=== PATIENT | female | born 1955 | race Caucasian/White ===

== ENCOUNTER 2024-08-14 16:30 | Inpatient (IN) | payer OTHER, SELFPAY ==
[2024-08-14] VITALS (9 sets, daily range): BP systolic 92–133; BP diastolic 56–86; BMI 20.5
--- NOTE | 2024-08-14 12:49 | ED.GENMED ---
History of Present Illness
General
Chief Complaint: Musculo-Skeletal Complaint
Source: patient
Time Seen by Provider: 08/14/24 12:36
History of Present Illness
History of Present Illness:
68yoF with no significant past medical history presenting via EMS with her daughter for evaluation after a fall about 2 hours ago. She was walking down her outdoor steps when she tripped over a trash bag. She landed directly on her left hip. She
denies any head strike or loss of consciousness. Patient noticed that her left leg was rotated and she was unable to get off the ground. She was on the ground for approximately 30 minutes before EMS arrived. Her only current complaint is left hip
pain. She denies any other injuries. No paresthesias in the extremity.
Phy Exam
General Physical Exam
General Presentation: well appearing and no apparent distress
General age: appears stated age
General Skin: warm and dry
General Habitus: normal
General Mental: alert
ENT Exam
ENT Exam: normocephalic
Eye Exam
Eye Exam: PERRL
Cardiovascular Exam
Cardiovascular Exam: regular rate/rhythm and no murmur
Pulmonary Exam
Pulmonary Exam: lungs clear, no respiratory distress, no rales, no crackles and no rhonchi
Neurological Exam
Neurological Exam: alert
Nena Coma Scale
Eye Opening: Spontaneous
Verbal Response: Oriented
Motor Response: Obeys Commands
GCS Total Score: 15
Musculoskeletal Exam
Musculoskeletal Exam: other (L leg is externally rotated and shortened. Unable to range L hip. Sensation intact. DP pulse obtained with doppler)
Skin Exam
Skin Exam: normal color and warm/dry
Psychiatric Exam
Psychiatric Exam: normal mood/affect
Course
Orders/Labs/Results
Orders:
Orders
08/14/24 12:47
Oxycodone/Acetaminophen [Percocet 5/325] 1 tablet PO NOW STA
CR Femur - Left Min 2 Vw Urgent
Comment:
Reason For Exam: fall
Pelvis, 1 or 2 Views CR [CR Pelvis - 1 Or 2 Views ] Urgent
Comment:
Reason For Exam: L hip pain
08/14/24 14:15
Complete Blood Count/With Diff Urgent
Comprehensive Metabolic Panel Urgent
08/14/24 15:12
Type+Screen Urgent
08/14/24 15:19
ORTHOPEDIC CONSULT Urgent
Consulting Provider: Michael Landaverde
Was physician already notified: Yes
08/14/24 16:00
ABO2 Urgent
BBK Wristband Number:
Associate notified that ABO2 has been ordered: [id number]
Date: 08/14/24
Time: 15:37
[facility] Therapist ID: [id number]
08/14/24 16:02
Admit/Transfer Patient As Directed
Co-Sign Provider:
Level of Care: Inpatient admission
Assign to:: Medical/Surgical
Physician / Group: lillian
Diagnosis: left hip fracture
Reason for Hospitalization: left hip fracture
Expected length of stay greater than two midnights?: Yes
ELOS- Estimated Length of Stay in days: 2
I certify the patient meets the requirements for IP care: Yes
PRN Pain Medication Management As Directed
May give lesser potent ordered pain med per pt: Yes
preference::
Protocol:: Medication orders for pain may be administered in a
manner that supports deferring to patient preference
when the pt is:
- Requesting an ordered lesser potent pain medication.
Least to most potent pain medications are defined
as: acetaminophen < NSAID < tramadol < opioids
(morphine, oxycodone, hydromorphone).
- Requesting a lesser dose of the same medication IF
ORDERED.
- Requesting a less intrusive route of administration
if both routes are prescribed by the provider (PO <
IV).
08/14/24 16:03
Code Status As Directed
Resuscitation Status: Full Code
Abnormal Lab Results
08/14/24
14:15
WBC 15.9 H 10^3/uL
(4.8-10.8)
RBC 3.71 L 10^6/uL
(4.20-5.40)
Hgb 11.8 L g/dL
(12.0-16.0)
Hct 35.0 L %
(37.0-47.0)
MCH 31.8 H pg
(27.0-31.0)
Abs Immat Gran (auto) 0.1 H 10^3/uL
(0-0.05)
Absolute Neuts (auto) 14.0 H 10^3/uL
(1.4-6.5)
Absolute Lymphs (auto) 1.0 L 10^3/uL
(1.2-3.4)
Neutrophils % 88.2 H %
(42.2-75.2)
Lymphocytes % 6.5 L %
(20.5-51.1)
BUN 18 H mg/dl
(7-17)
Glucose 105 H mg/dl
(70-99)
08/14/24 14:15
08/14/24 14:15
Vital Signs
Initial and Last Documented VS:
Initial Vital Signs
Temp Pulse Resp BP Pulse Ox
97.5 F 66 14 130/86 98
08/14/24 12:08/14/24 12:06 08/14/24 12:08/14/24 12:08/14/24 12:06
Last Documented Vital Signs
Temp Pulse Resp BP Pulse Ox
97.5 F 68 14 102/56 100
08/14/24 12:06 08/14/24 12:06 08/14/24 12:06 08/14/24 15:17 08/14/24 15:30
MDM/Problems Addressed
Differential Diagnosis Includes:
68yoF here with L hip pain after a mechanical fall. L leg is shortened and externally rotated on exam. LLE is neurovascularly intact. No other injuries appreciated on exam. Differential diagnosis includes but is not limited to: fracture, dislocation
Initial ED plan: Check basic labs and pelvis/L femur x-rays. Percocet for pain.
*Critical Care Note
Total Time (30-74mins, 75-104mins- exclusive of procedures): Not Applicable
Update Note
Update Note:
X-rays show a comminuted intertrochanteric fracture. Orthopedics notified and plan is for OR tomorrow. Patient admitted to the internal medicine service for further management.
ED Attending Note
-
Portions of this chart may have been created with voice recognition software.� Occasional wrong word or��sound alike� substitutions may have occurred due to the inherent limitations of voice recognition software.
Discharge Plan
Departure
Patient Disposition: Admit
Date of Disposition: 08/14/24
Time of Disposition: 15:20
Presentation/result/management discussed w/ accepting MD/DO: Hospitalist
Discharge Problem:
Closed fracture of left hip
Prescriptions:
No Action
calcium carbonate [Calcium 600] 600 mg calcium (1,500 mg) Tablet
600 mg PO DAILY
PreserVision AREDS-2 250-90-40-1 mg Capsule
1 tab PO DAILY
Referrals:
Bryan Hernandez MD [Family Provider] -
Interventions
Interventions:
*Risk Screen - Suicide Last Done: 08/14/24 12:06
*General Assessment Last Done: 08/14/24 12:06
*Neglect/Abuse Screening Last Done: 08/14/24 12:06
ED- Fall Risk Assessment Last Done: 08/14/24 12:06
*ED COVID-19 Vaccine History Last Done: 08/14/24 12:06
ED-Musculoskeletal Assessment Last Done: 08/14/24 12:23
Discharge Date and Time
Print Language: FAROESE
[2024-08-14] MEDS: PERCOCET 5/325 1 TABLET PO (13:03)
[2024-08-14 14:44] LABS: % Basophils 0.4 % (0-2); % Eosinophils 0.5 % (0-6); % Immature Granulocytes 0.4 % (0-0.5); % Lymphocytes 6.5 % (20.5-51.1); % Neutrophils 88.2 % (42.2-75.2); Absolute Basophils 0.1 10^3/uL (0-0.2); Absolute Eosinophils 0.1 10^3/uL (0-0.7); Absolute Immature Granulocytes 0.1 10^3/uL (0-0.05); Absolute Monocytes 0.6 10^3/uL (0.1-0.6); Hemoglobin 11.8 g/dL (12.0-16.0); Mean Corp Hgb Conc. 33.7 g/dL (33.0-37.0); Mean Corpuscular Hgb 31.8 pg (27.0-31.0); Mean Corpuscular Volume 94.3 fL (81.0-99.0); Mean Platelet Volume 10.3 fL (7.4-10.4); Nucleated Red Blood Cells % 0 %; Platelet Count 242 10^3/uL (130-400); Red Blood Cell Count 3.71 10^6/uL (4.20-5.40); Red Cell Dist. Width 13.2 % (11.5-14.5); White Blood Cell Count 15.9 10^3/uL (4.8-10.8)
[2024-08-14 14:51] LABS: ALT (SGPT) 21 U/L (0-35); AST (SGOT) 30 U/L (14-36); Albumin 4.1 g/dl (3.5-5.0); Alkaline Phosphatase 67 U/L (38-126); Blood Urea Nitrogen 18 mg/dl (7-17); Calcium 9.4 mg/dl (8.4-10.2); Carbon Dioxide 26 mmol/L (22-30); Chloride 103 mmol/L (98-107); Estimated Creatinine Clearance 66 ml/min; Glucose 105 mg/dl (70-99); Potassium 3.8 mmol/L (3.5-5.1); Sodium 139 mmol/L (135-145); Total Bilirubin 1.3 mg/dl (0.2-1.3); Total Protein 6.4 g/dl (6.3-8.2); eGFR > 60.00
--- NOTE | 2024-08-14 15:49 | PHANOTE ---
med ec note- patient applies a cream to fore head. patient can not remember at this what it is called. micki specialty cream.
--- NOTE | 2024-08-14 16:06 | HPS.HSE ---
Family Physician
-
Family Physician: Bryan Hernandez
Chief Complaint
-
fall, hip fracture
History of Present Illness
68-year-old female past medical history of morphea presenting with fall 2 hours ago. She was walking outdoors she tripped over a trash bag and landed directly on her left hip. She denies head injury or loss of consciousness. She noticed that her
left leg was rotated and she was unable to get off the ground. He was on the ground for 30 minutes. Her only complaint is left hip pain. She denies any numbness or tingling.
She drinks 1 glass of wine every night. Denies smoking.
No history of cardiac problems.
Medical History
Past Medical History
Past Medical History: Reports Other (morphea )
Past Surgical History: Reports Other (breast augmentation )
Social History
Tobacco: Non-smoker
Alcohol: None
Drug: None
Family History
Family History: Not pertinent
Allergies / Home Medications
Allergies reflects when Allergies were last updated in [facility].
Home Medications with original date entered in [employer]
Allergy/Medication List:
Allergies
Allergy/AdvReac Type Severity Reaction Status Date / Time
No Known Allergies Allergy Verified 08/14/24 12:06
Home Medications
calcium carbonate (Calcium 600) 600 mg PO DAILY 08/14/24
vit C 250 mg-vit E 90 mg-zinc 40 mg-copper 1 [id number] capsule (PreserVision AREDS-2) 1 tab PO DAILY 08/14/24
Review of Systems
-
History Source: Patient
A 12 point ROS was completed and negative except as noted: Yes
Constitutional: Reports No Symptoms
EENT: Reports No Symptoms
Respiratory: Reports No Symptoms
Cardiac: Reports No Symptoms
Abdomen/GI: Reports No Symptoms
: Reports No Symptoms
Musculoskeletal: Reports No Symptoms
Skin: Reports No Symptoms
Neurological: Reports No Symptoms
Endocrine: Reports No Symptoms
Hematologic/Lymphatic: Reports No Symptoms
Psych: Reports No Symptoms
Physical Exam
Vital Signs
Vital Signs
Temp Pulse Resp BP Pulse Ox
97.5 F 68 14 102/56 100
08/14/24 12:06 08/14/24 12:06 08/14/24 12:06 08/14/24 15:17 08/14/24 15:30
Physical Exam
General: Well Developed, Well Nourished and No Apparent Distress
HEENT: NormoCephalic, Moist mucous membranes and Atraumatic
Respiratory: Clear
Cardiac: S1/S2 and Regular Rhythm; No Murmur or Rub
GI: Soft, Non Tender, Non Distended and Normal Bowel Sounds; No Organomegaly
Rectal: Deferred by Provider
Musculoskeletal: No Clubbing, No Cyanosis and No Edema
Skin: No Rash
Neuro: Nonfocal/grossly intact
Laboratory Results
-
08/14/24 14:15
08/14/24 14:15
Laboratory Results
Total Bilirubin 1.3 mg/dl (0.2-1.3) 08/14/24 14:15
AST 30 U/L (14-36) 08/14/24 14:15
ALT 21 U/L (0-35) 08/14/24 14:15
Alkaline Phosphatase 67 U/L (38-126) 08/14/24 14:15
Data Reviewed
-
Lab Data: Labs Reviewed by me
Old Records: Reviewed
Impression/Plan
-
IMPRESSION:
PLAN:
# Left hip fracture
-Tylenol, oxycodone for pain as needed
-Ortho consulted
-N.p.o. past midnight
-No cardiac history
-Very good functional status at baseline, can proceed to surgery,
History of morphea
Full code
DVT prophylaxis�SCDs
N.p.o. past midnight
[2024-08-14] MEDS: TYLENOL 650 MG PO (20:13)
[2024-08-15] VITALS (11 sets, daily range): BP systolic 100–136; BP diastolic 58–78
--- NOTE | 2024-08-15 05:40 | CON.ORTHO ---
Consultation
-
Date/Time Consultation Requested: 08/14/2024 @ 15:19
Date/Time Consultation Performed: 08/15/2024 @ 5:30
Requesting Provider: Joanne Mary PA-C
Performing Provider: Kenny Stockton PA-C for Dr. Michael Landaverde
Reason for Consultation: Left Hip Fracture
Consultation - Orthopedics
History
HPI: The patient is a 68-year-old female with a past medical history of Morphea presenting to [facility] via EMS yesterday after sustaining a mechanical fall. She reports that she was walking outdoors when she tripped
and landed directly on her left hip. She reports immediate onset of left hip pain. She noticed that her left leg was rotated and she was unable to get off the ground. She was transferred to the ED where x-rays revealed a left hip fracture. She
denies any head injury or loss of consciousness. At this time, she reports her left hip pain is controlled at rest. She does endorse a radiating pain into her left knee. She lives with her daughter. She is fully ambulatory at baseline without
assistance. She denies any cardiac history or anticoagulation use. She denies any paresthesias. Orthopedics has been consulted for further management.
PAST MEDICAL HISTORY: Morphea.
PAST SURGICAL HISTORY: Breast augmentation.
SOCIAL HISTORY: Denies tobacco use. Drinks 1 glass of wine at night. Denies any illicit drug use. Lives at home with her daughter. She is fully ambulatory without assistance at baseline. 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
home.
FAMILY HISTORY: Non-contributory.
REVIEW OF SYSTEMS: 12-point review of systems obtained and negative except those mentioned in the HPI.
Allergies / Home Medications
Allergy/AdvReac Type Severity Reaction Status Date / Time
No Known Allergies Allergy Verified 08/14/24 12:06
�Medication �Instructions �Recorded
calcium carbonate (Calcium 600) 600 mg PO DAILY 08/14/24
vit C 250 mg-vit E 90 mg-zinc 40 1 tab PO DAILY 08/14/24
mg-copper 1 [id number]
capsule (PreserVision AREDS-2)
Vital Signs / Lab Results
Temp Pulse Resp BP Pulse Ox
98.5 F 80 18 92/56 99
08/14/24 23:24 08/14/24 23:24 08/14/24 23:24 08/14/24 23:24 08/14/24 23:24
RADIOGRAPHIC FINDINGS:
CR Femur - LEFT Min 2 Vw; CR Pelvis 1 or 2 Viewswas obtained at [facility] on 08/14/2024 and was made available for my review today. Findings and Impression: Comminuted fracture is seen in the intertrochanteric region, with impaction of
major fracture fragment. No dislocation of the left hip joint. No additional fractures are appreciated.
PHYSICAL EXAM:
General: Well-developed, well-nourished and in no apparent distress.
HEENT: NCAT, sclerae anicteric, normal hearing.
Heart: No JVD.
Lungs: Normal work of breathing on room air.
MSK: Directed exam of the left lower extremity reveals leg shortened and externally rotated. (+) TTP about the left hip/lateral thigh. Able to perform flexion and extension of the left knee with no significant reproducible tenderness to palpation
about the left knee. Compartments are soft and compressible. (+) Logroll. Calf is soft and nontender to palpation. Able to dorsiflex and plantarflex left ankle. NVI distally.
Assessment / Plan
ASSESSMENT: 68-year-old female with a LEFT comminuted hip fracture in the intertrochanteric region, with impaction of major fracture fragment.
PLAN: Unfortunately, the patient has sustained a left hip fracture. Recommended operative fixation. The risks, benefits, potential complications, and expected post-operative course were reviewed. The patient has been medically cleared to proceed
with surgery. We will plan for LEFT hip gamma nail under the direction of Dr. Landaverde today, 08/15/2024. Surgical blood consents obtained and placed on patient's chart. Ancef on-call to OR. Patient will remain NPO. Remain NWB to LLE until
post-op. She is to remain on bedrest for now. Continue with pain medications as needed. Type and screen completed. Left hip marked as the correct surgical extremity. She was complaining of some left knee pain this morning, therefore will obtain
dedicated plain radiographs of the left knee. Hemoglobin 11.8 from 08/14/2024. Hemoglobin this AM pending. Orthopedic surgery will continue to follow.
[2024-08-15] MEDS: TYLENOL 650 MG PO (08:09)
[2024-08-15] MEDS: OCUVITE SOFTGEL 1 CAP PO (08:09)
[2024-08-15] MEDS: OSCAL CAL 500 500 MG PO (08:09)
[2024-08-15 08:38] LABS: % Basophils 0.5 % (0-2); % Eosinophils 0.8 % (0-6); % Immature Granulocytes 0.3 % (0-0.5); % Lymphocytes 11.9 % (20.5-51.1); % Neutrophils 77.5 % (42.2-75.2); Absolute Basophils 0.1 10^3/uL (0-0.2); Absolute Eosinophils 0.1 10^3/uL (0-0.7); Absolute Lymphocytes 1.2 10^3/uL (1.2-3.4); Absolute Monocytes 0.9 10^3/uL (0.1-0.6); Absolute Neutrophils 7.9 10^3/uL (1.4-6.5); Hematocrit 34.3 % (37.0-47.0); Hemoglobin 11.6 g/dL (12.0-16.0); Mean Corp Hgb Conc. 33.8 g/dL (33.0-37.0); Mean Corpuscular Hgb 31.7 pg (27.0-31.0); Mean Corpuscular Volume 93.7 fL (81.0-99.0); Mean Platelet Volume 10.5 fL (7.4-10.4); Nucleated Red Blood Cells % 0 %; Platelet Count 233 10^3/uL (130-400); Red Blood Cell Count 3.66 10^6/uL (4.20-5.40); Red Cell Dist. Width 13.3 % (11.5-14.5); White Blood Cell Count 10.1 10^3/uL (4.8-10.8)
[2024-08-15 08:39] LABS: ALT (SGPT) 21 U/L (0-35); AST (SGOT) 32 U/L (14-36); Albumin 3.9 g/dl (3.5-5.0); Alkaline Phosphatase 59 U/L (38-126); Blood Urea Nitrogen 11 mg/dl (7-17); Carbon Dioxide 27 mmol/L (22-30); Chloride 105 mmol/L (98-107); Estimated Creatinine Clearance 77 ml/min; Glucose 101 mg/dl (70-99); Potassium 4.3 mmol/L (3.5-5.1); Sodium 139 mmol/L (135-145); Total Bilirubin 2.3 mg/dl (0.2-1.3); Total Protein 6.4 g/dl (6.3-8.2); eGFR > 60.00
--- NOTE | 2024-08-15 12:29 | W.PN.HOSP.TC ---
Today's Communication/Plan
-
OR today
Pain control
Postop orders per orthopedic
Check EKG
Assessment / Plan
Assessment / Plan
# Mechanical fall leading to left hip fracture with suspected history of osteopenia
-Tylenol, oxycodone for pain as needed
-Ortho consulted
-No cardiac history. No pulmonary history. No renal disease. No diabetes. Patient is able to walk more than 2 miles without any difficulty. Patient is able to go up multiple flights of stairs without any chest pain or palpitations. Patient at
baseline is ambulatory without any difficulty.
- Bowel regimen
- Post op DVT ppx per ortho.
-Check baseline EKG. None checked on admission
-Trend hemoglobin postop
Leukocytosis likely reactive
Resolved
Mild bump in bilirubin
Continue to trend CMP
History of morphea
Full code
DVT prophylaxis�SCDs
Anticipated Discharge: > 48 hours
Subjective/Interval History
-
Date of Service: August 15, 2024
states of some hip soreness
Objective Data
-
Labs:
Laboratory Results
08/15/24
06:34
WBC 10.1
Hgb 11.6 L
Hct 34.3 L
Plt Count 233
Sodium 139
Potassium 4.3
Chloride 105
Carbon Dioxide 27
BUN 11
Creatinine 0.6
Glucose 101 H
Calcium 9.0
Total Bilirubin 2.3 H D
AST 32
ALT 21
Alkaline Phosphatase 59
Vital Signs:
Vital Signs
Temp Pulse Resp BP Pulse Ox
99 F 76 19 114/74 100
08/15/24 07:00 08/15/24 07:00 08/15/24 07:00 08/15/24 07:00 08/15/24 07:00
I&O
08/14/24 08/15/24 08/16/24
06:59 06:59 06:59
Intake Total 240 / 240
Output Total 600 / 600
Balance -360 / -360
Physical Exam
-
General: Well Developed and No Apparent Distress
HEENT: Normocephalic, Atraumatic and Moist Mucous Membranes
Respiratory: Clear to Auscultation
Cardiac: Regular Rhythm and S1/S2; Negative Murmur, Rub or Gallop
GI: Soft, Nontender, Nondistended and Normal Bowel Sounds; Negative Organomegaly
Rectal: Deferred by Provider
Musculoskeletal: No Clubbing, No Cyanosis, No Edema and Other (leg shortened and externally rotated.)
Skin: Negative Rash
Neuro: Awake, AO x 3, No Motor Deficits and Nonfocal/Grossly Intact
Psych: Calm
Data Reviewed
-
Total Time Spent with Patient (in minutes): 52
--- NOTE | 2024-08-15 13:13 | CM ---
Patient seen bedside.
IA completed.
Patient lives with daughter in a 2 story home with 2 steps to enter.
Independent prior to admission with no hx VN or SNF
Patient drives.
Dx rx hip, OR today.
Await PT/OT recommendations.
PCP: Dr Hernandez
Pharmacy: [facility] in [place]
Plan: to be determined.
--- NOTE | 2024-08-15 13:54 | PTCARENOTE ---
Pt taken to OR by transport staff. Verbal report given to CESILIA Sanchez. Pt attempted to void using pure wick before leaving but was unable.
--- NOTE | 2024-08-15 17:26 | PTCARENOTE ---
Patient admitted from [facility] with gamma nail left hip fracture.The patient fell at home and was admitted from the emergency room.The patient denies any pain.She is able to wiggle her toes but unable to feel anything else yet.Vital signs
are stable. Their is scant drainage on 2 of the 3 Primaseal dressings and all are intact.The patient is in her bed with the call day in reach.
[2024-08-15] MEDS: ASPIRIN 325 MG PO (17:39)
[2024-08-15] MEDS: CELEBREX 200 MG PO (19:53)
[2024-08-15] MEDS: COLACE 100 MG PO (19:53)
[2024-08-15] MEDS: ANCEF 5 IV (21:32)
[2024-08-16 03:08] VITALS: BP 100/66
[2024-08-16] MEDS: ANCEF 5 IV (05:39)
[2024-08-16 05:56] LABS: % Basophils 0.2 % (0-2); % Immature Granulocytes 0.6 % (0-0.5); % Lymphocytes 6.1 % (20.5-51.1); % Monocytes 9.4 % (1.7-9.3); % Neutrophils 83.7 % (42.2-75.2); Absolute Immature Granulocytes 0.1 10^3/uL (0-0.05); Absolute Lymphocytes 0.8 10^3/uL (1.2-3.4); Absolute Monocytes 1.2 10^3/uL (0.1-0.6); Hematocrit 31.3 % (37.0-47.0); Hemoglobin 10.6 g/dL (12.0-16.0); Mean Corp Hgb Conc. 33.9 g/dL (33.0-37.0); Mean Corpuscular Hgb 31.4 pg (27.0-31.0); Mean Corpuscular Volume 92.6 fL (81.0-99.0); Mean Platelet Volume 10.8 fL (7.4-10.4); Nucleated Red Blood Cells % 0 %; Platelet Count 231 10^3/uL (130-400); Red Blood Cell Count 3.38 10^6/uL (4.20-5.40); Red Cell Dist. Width 13.3 % (11.5-14.5); White Blood Cell Count 13.2 10^3/uL (4.8-10.8)
[2024-08-16 06:38] LABS: ALT (SGPT) 17 U/L (0-35); AST (SGOT) 28 U/L (14-36); Albumin 3.5 g/dl (3.5-5.0); Alkaline Phosphatase 52 U/L (38-126); Blood Urea Nitrogen 14 mg/dl (7-17); Calcium 8.7 mg/dl (8.4-10.2); Carbon Dioxide 24 mmol/L (22-30); Chloride 104 mmol/L (98-107); Estimated Creatinine Clearance 77 ml/min; Glucose 105 mg/dl (70-99); Potassium 4.4 mmol/L (3.5-5.1); Sodium 140 mmol/L (135-145); Total Bilirubin 1.8 mg/dl (0.2-1.3); Total Protein 5.9 g/dl (6.3-8.2); eGFR > 60.00
[2024-08-16 06:52] VITALS: BP 122/63
--- NOTE | 2024-08-16 07:15 | W.PN.ORTHO ---
Today's Communication / Plan
-
68 yo F POD1 left hip cephalomedullary nail under the direction of Dr. Deleon
--WBAT with assistive device to LLE. We appreciate the assistance of PT/OT.
--Recommend ASA 325 mg daily x4 weeks for DVT ppx.
--Hgb 10.6 today. Continue to monitor.
--Continue pain control prn. Ice and elevation prn for edema control.
--Maintain surgical dressing until 7-10 days post-op. Staple removal at 2 weeks post-op.
--Case management consult for dc planning.
--Orthopedics will continue to follow along.
Assessment
.
Distal Motor Intact: Yes
Dressing:
Clean, dry and intact.
Plan
.
Surgery / Date: Left hip CMN, [facility], 08/15/2024
DVT Prophylaxis: Aspirin
Activity:
Out of bed.
PT/OT
Subjective
.
.:
Ms. Gates is POD1 following her left hip CMN under the direction of Dr. Deleon. She is resting comfortably in bed this morning. She endorses mild pain when walking on the hip, but denies pain at rest.
Vital Signs and Labs
.
Vital Signs and Labs:
Lab Results
08/16/24 04:39
08/16/24 04:39
Temp Pulse Resp BP Pulse Ox
97.7 F 66 18 122/63 98
08/16/24 06:52 08/16/24 06:52 08/16/24 06:52 08/16/24 06:52 08/16/24 06:52
Physical Exam
-
Directed exam of the left lower extremity reveals surgical dressings clean, dry and intact. Mild tenderness to palpation about the lateral hip. Thigh soft and compressible. Calf soft and nontender. Patient able to wiggle toes, plantar and dorsiflex
ankle. Neurovascularly intact distally.
[2024-08-16] MEDS: PEPCID 20 MG PO (08:24)
[2024-08-16] MEDS: ASPIRIN 325 MG PO (08:24)
[2024-08-16] MEDS: COLACE 100 MG PO (08:24)
[2024-08-16] MEDS: OSCAL CAL 500 500 MG PO (08:24)
[2024-08-16] MEDS: OCUVITE SOFTGEL 1 CAP PO (08:24)
[2024-08-16] MEDS: CELEBREX 200 MG PO (08:24)
[2024-08-16] MEDS: TYLENOL 650 MG PO (08:34)
[2024-08-16 09:39] VITALS: BP 133/78; PULSE 75; O2SAT 100
[2024-08-16 09:55] VITALS: BP 133/78; BP 149/79; PULSE 75; O2SAT 100
--- NOTE | 2024-08-16 10:03 | PN.CDI ---
CDI
- -
CDI:
Physician Documentation Request
Admit Date: 08/14/24 16:30
Dear Doctor Vandana,
Please review the following and provide your response in the progress notes.
Clinical Indicators:
PN, 08/15
# Mechanical fall leading to left hip fracture with suspected history of osteopenia
Home Medications
#calcium carbonate (Calcium 600) 600 mg PO DAILY 08/14/24
Based on the above and your clinical assessment, please clarify the following regarding the left hip fracture:
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
Traumatic fracture only
Other (please specify)
Type
Age-related
Idiopathic
Osteoporosis of disuse
Post traumatic
Use of terms such as suspected, likely, concern for, or probable (associated with a specific diagnosis that is being evaluated, monitored, or treated as if it exists) are acceptable and can be coded in the inpatient setting, when documented at the
time of discharge.
Thank you,
Nataly Nichols RN BSN CCDS
CDI Specialist
please contact via tiger text
Please use your independent medical judgment in providing your response.
--- NOTE | 2024-08-16 10:28 | W.PN.HOSP.TC ---
Addendum entered and electronically signed by Aj Ross MD 08/16/24 11:10:
Hip fracture multifactorial due to trauma secondary to mechanical fall and osteopenia
Original Note:
Today's Communication/Plan
-
home vn/pt
OP ortho f/u
Assessment / Plan
Assessment / Plan
# Mechanical fall leading to left hip fracture with suspected history of osteopenia
-Tylenol, oxycodone for pain as needed
-Ortho consulted
-No cardiac history. No pulmonary history. No renal disease. No diabetes. Patient is able to walk more than 2 miles without any difficulty. Patient is able to go up multiple flights of stairs without any chest pain or palpitations. Patient at
baseline is ambulatory without any difficulty.
- Bowel regimen
- Post op DVT ppx per ortho. Started on aspirin
-Status post left hip cephalomedullary nail on 08/15.
-Hemoglobin stable postop. Plan for home PT and then eventually outpatient therapy. Will require walker at home. Prescription provided.
Leukocytosis likely reactive
Mild bump in bilirubin
Continue to trend CMP improving. Outpatient follow-up.
History of morphea
Full code
DVT prophylaxis�SCDs aspirin
More than 30 minutes spent in discharge including
Final examination of the patient
Summarizing hospital stay
Instructions for continuing care to all relevant caregivers
Preparation of discharge records, prescriptions, and referral forms
Total time spent (in minutes): 52
Anticipated Discharge: Today
Subjective/Interval History
-
Date of Service: August 16, 2024
Patient walking around with walker and working with occupational therapy
Patient worked with physical therapy until steps earlier
Patient states of mild soreness and only took Tylenol
Patient states she is able to ambulate and has assistance at home
Objective Data
-
Labs:
Laboratory Results
08/16/24
04:39
WBC 13.2 H
Hgb 10.6 L
Hct 31.3 L
Plt Count 231
Sodium 140
Potassium 4.4
Chloride 104
Carbon Dioxide 24
BUN 14
Creatinine 0.6
Glucose 105 H
Calcium 8.7
Total Bilirubin 1.8 H
AST 28
ALT 17
Alkaline Phosphatase 52
Vital Signs:
Vital Signs
Temp Pulse Resp BP Pulse Ox
97.7 F 66 18 122/63 98
08/16/24 06:52 08/16/24 06:52 08/16/24 06:52 08/16/24 06:52 08/16/24 06:52
I&O
08/15/24 08/16/24 08/17/24
06:59 06:59 06:59
Intake Total 240 / 240 1320 / 1320
Output Total 600 / 600
Balance -360 / -360 1320 / 1320
Physical Exam
-
General: Well Developed and No Apparent Distress
HEENT: Normocephalic, Atraumatic and Moist Mucous Membranes
Respiratory: Non Labored Respirations; Negative Accessory Resp Muscle Use
Cardiac: Negative Murmur, Rub or Gallop
GI: Nondistended; Negative Organomegaly
Rectal: Deferred by Provider
Musculoskeletal: No Clubbing, No Cyanosis, No Edema and Other (leg shortened and externally rotated.)
Skin: Negative Rash
Neuro: Awake, Alert, Oriented, AO x 3, No Motor Deficits and Nonfocal/Grossly Intact
Psych: Calm
--- NOTE | 2024-08-16 10:36 | W.DCSUMMARY ---
Discharge Summary
Discharge Data
Date of Admission: 08/14/24
Date of Discharge: 08/16/24
-
Pending Results: No
Hospital Course
68-year-old female with past medical history of Morphea, was presenting after mechanical fall. Patient underwent imaging which showed left hip fracture. Patient was referred by orthopedic. Patient underwent evaluation by Dr. Deleon and went to the
operating room. Patient underwent left hip cephalomedullary nail on 08/15/2024. Postop patient hemoglobin was stable. Patient was started on aspirin for DVT prophylaxis for 4 weeks. Patient was eval by physical and Occupational Therapy and
recommended home therapy. Walker was prescribed. Patient be discharged home with recommendation to follow-up with orthopedic as outpatient.
Discharge Plan
-
Patient Disposition: Home with Home Care
Discharge Diagnosis/Procedures: Mechanical fall leading to left hip fracture status post left hip cephalomedullary nail on 08/15/[address] Pancho Amaya
Leukocytosis
Mild bilirubin elevation
Condition: Fair
Diet: Regular
Activity: Other activity
Additional Activity: Weightbearing as tolerated with assistive device to left lower extremity
Driving Restrictions: Not until seen by your Dr
Blood Work: cbc and cmp in 7 days via primary doctor.
Other Services: VN and PT
Activity Restrictions/Additional Instructions:
Maintain surgical dressing until 7-10 days post-op. Staple removal at 2 weeks post-op.
Referrals:
Bryan Hernandez MD [Family Provider] - in less than 1 week (Recommend outpatient evaluation for osteopenia and osteoporosis)
Jose Luis Deleon MD [Active] - in two weeks (call to make appt)
Prescriptions:
New
acetaminophen 325 mg Tablet
650 mg PO Q4HPRN PRN (Reason: pain) 14 Days Qty: 30 0RF
famotidine 20 mg Tablet
20 mg PO DAILY 30 Days Qty: 30 0RF
aspirin 325 mg capsule
325 mg PO DAILY Qty: 28 0RF
Continued
calcium carbonate [Calcium 600] 600 mg calcium (1,500 mg) Tablet
600 mg PO DAILY
PreserVision AREDS-2 250-90-40-1 mg Capsule
1 tab PO DAILY
Discharge Orders:
Discharge Patient (As Directed); Ordered 08/16/24
Ordered By: Aj Ross
Discharge Date and Time
Print Language: FRISIAN
--- NOTE | 2024-08-16 10:46 | CM ---
Chart reviewed. Met with pt at bedside
PT/OT recs - HH - discussed with pt - agreed with plan - Has no preference to HH agency
TT sent to [facility] Liaison for home care needs - PT/OT
Pt reports her daughter will transport home. Daughter is a supervisor public health nursing per pt and can assist
Discussed IMM
Plan - home with [facility]
[2024-08-16 11:00] VITALS: BP 126/67
--- NOTE | 2024-08-16 11:48 | VNURNOTE ---
Home Health Liaison met with patient to discuss [facility] nurse/therapy, visits, schedule and homebound status. Patient is agreeable and understands that visits at home will be 2-3 x per week to assess and teach medical management. [facility] brochure provided
with contact information. Patient is aware that [facility] will contact them for start of care in 1-2 days after discharge from . [facility] referral completed in [facility].
== END 2024-08-16 13:47 | disposition home health service (06) | DRG 482 ==
LOC: 2 SOUTH 16:30
PROVIDERS: Physician Assistant; Specialist; ADMITTING PHYSICIAN Hospitalist; ATTENDING PHYSICIAN Hospitalist; CONSULT PHYSICIAN Orthopaedic Surgery Hand Surgery; EMERGENCY PHYSICIAN Emergency Medicine; FAMILY PHYSICIAN Family Medicine
PROC: 0QS706Z Reposition Left Upper Femur with Intramedullary Internal Fixation Device, Open Approach (ICD-10-PCS; 2024-08-15)
DX: S72.002A Fracture of unspecified part of neck of left femur, initial encounter for closed fracture (principal); W01.0XXA Fall on same level from slipping, tripping and stumbling without subsequent striking against object, initial encounter; Y93.01 Activity, walking, marching and hiking; M25.562 Pain in left knee; D72.829 Elevated white blood cell count, unspecified
CPT/HCPCS: 72170; 73502; 73552; 73560; 76000; 80053; 85025; 86850; 86900; 86901; 93005; 97110; 97116; 97162; 97166; 97530; 99285; C1713; C1769

== ENCOUNTER → 2024-12-17 12:57 | Outpatient (REF) | payer OTHER, SELFPAY | LOC: PAVMRI 12:57 | PROVIDERS: ATTENDING PHYSICIAN Physician Assistant Surgical; FAMILY PHYSICIAN Family Medicine | DX: M25.562 Pain in left knee (principal) | CPT/HCPCS: 73721 ==

== ENCOUNTER → 2024-12-29 11:25 | Outpatient (REF) | payer OTHER, SELFPAY | LOC: REG 11:25 | PROVIDERS: ATTENDING PHYSICIAN Specialist | DX: Z01.818 Encounter for other preprocedural examination (principal) | CPT/HCPCS: 93005 ==

== ENCOUNTER 2025-06-13 14:51 | Emergency (ER) | payer SELFPAY ==
[2025-06-13 14:55] VITALS: BP 160/85
[2025-06-13 15:17] VITALS: BMI 19.0
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
[2025-06-13] MEDS: TYLENOL 650 MG PO (15:53)
[2025-06-13 18:21] VITALS: BP 140/72
== END 2025-06-13 18:22 | disposition home or self-care (01) ==
LOC: EMR 14:51
PROVIDERS: EMERGENCY PHYSICIAN Emergency Medicine; FAMILY PHYSICIAN Family Medicine
DX: S00.212A Abrasion of left eyelid and periocular area, initial encounter (principal); S00.83XA Contusion of other part of head, initial encounter; V53.5XXA Driver of pick-up truck or van injured in collision with car, pick-up truck or van in traffic accident, initial encounter
CPT/HCPCS: 99284; 70450